=== PATIENT | female | born 1960 | race Caucasian/White ===

== ENCOUNTER 2016-09-27 20:11 | Observation (INO) | payer BC, OTHER ==
[2016-09-27] MEDS ORDERED: SODIUM CHLORIDE 0.9% 1,000 ML IV STA (20:50)
--- NOTE | 2016-09-27 20:59 | ED ---
General Adult HPI - General Source: patient, RN notes reviewed Mode of arrival: ambulatory Limitations: no limitations <Tito Sanchez - Last Filed: 09/27/16 21:12> <Jose Brewer - Last Filed: 09/28/16 00:09> - General Chief complaint: Headache Stated complaint: migraine Time Seen by Provider: 09/27/16 20:44 - History of Present Illness Initial comments: Patient is a 55-year-old female who presents emergency room today with chief complaint of a headache. She states she's had "migraines" over the last week and a half. She states she typically does not have headaches like this. States is different. She describes it as a pressure. She states feels like " my heads going to explode". She states that she has been trying ibuprofen at home with some relief. She states she was unaware that her blood pressure was still elevated. It was 236/105 at triage. She states she does not have a history of hypertension. She states she does not take any other medications other than ibuprofen occasionally at home. She does admit that she felt some fluttering in her chest on and off over the last few days. She states that she' s felt nauseous and had vomiting today. Patient denies any other complaints. Patient denies any recent fever, chills, shortness of breath, chest pain, back pain, abdominal pain, numbness or tingling, dysuria or hematuria, constipation or diarrhea, visual changes, or any other complaints. (Tito Sanchez) - Related Data Home Medications Medication Instructions Recorded Confirmed Cyanocobalamin [Vitamin B-12] 500 mcg PO DAILY 09/27/16 09/27/16 Guaifen/Phenyleph/Acetaminophn 2 tab PO ONCE PRN 09/27/16 09/27/16 [Tylenol Sinus Severe Caplet] Ibuprofen [Motrin] 600 - 800 mg PO DAILY PRN 09/27/16 09/27/16 Allergies Allergy/AdvReac Type Severity Reaction Status Date / Time No Known Allergies Allergy Verified 09/27/16 20:35 Review of Systems ROS Other: All systems not noted in ROS Statement are negative. <Tito Sanchez - Last Filed: 09/27/16 21:12> ROS Other: All systems not noted in ROS Statement are negative. <Jose Brewer - Last Filed: 09/28/16 00:09> ROS Statement: Those systems with pertinent positive or pertinent negative responses have been documented in the HPI. Past Medical History Past Medical History: No Reported History History of Any Multi-Drug Resistant Organisms: None Reported Past Surgical History: Cholecystectomy Additional Past Surgical History / Comment(s): One ovary removed (not sure which ); Bladder suspension Past Psychological History: No Psychological Hx Reported Smoking Status: Current every day smoker Past Alcohol Use History: None Reported Past Drug Use History: None Reported <Tito Sanchez - Last Filed: 09/27/16 21:12> General Exam Limitations: no limitations <Tito Sanchez - Last Filed: 09/27/16 21:12> <Jose Brewer - Last Filed: 09/28/16 00:09> - General Exam Comments Initial Comments: General: The patient is awake and alert, in no distress, and does not appear acutely ill. Eye: Pupils are equal, round and reactive to light, extra-ocular movements are intact. No nystagmus. There is normal conjunctiva bilaterally. No signs of icterus. Ears, nose, mouth and throat: There are moist mucous membranes and no oral lesions. Neck: The neck is supple, there is no tenderness or JVD. Cardiovascular: There is a regular rate and rhythm. No murmur, rub or gallop is appreciated. Respiratory: Lungs are clear to auscultation, respirations are non-labored, breath sounds are equal. No wheezes, stridor, rales, or rhonchi. Gastrointestinal: Soft, non-distended, non-tender abdomen without masses or organomegaly noted. There is no rebound or guarding present. No CVA tenderness. Bowel sounds are unremarkable. Musculoskeletal: Normal ROM, no tenderness. Strength 5/5. Sensation intact. Pulses equal bilaterally 2+. Neurological: A&O x 3. CN II-XII intact, There are no obvious motor or sensory deficits. Coordination appears grossly intact. Speech is normal. Skin: Skin is warm and dry and no rashes or lesions are noted. Psychiatric: Cooperative, appropriate mood & affect, normal judgment. (Tito Sanchez) EKG Findings - EKG Comments: EKG Findings:: EKG performed at 2046: Shows normal sinus rhythm with right bundle branch block. Ventricular rate 79 bpm. OH interval 142. QRS 144. QT/ QTc 404/504. No acute ST changes. No old EKG to compare to. <Thor Sanchezony - Last Filed: 09/27/16 21:12> Medical Decision Making <SanchezTito - Last Filed: 09/27/16 21:12> - Lab Data Result diagrams: 09/27/16 21:03 09/27/16 21:03 <Jose Brewer Jazmin - Last Filed: 09/28/16 00:09> - Medical Decision Making 55-year-old female presenting with global headache. Headache was gradual in onset. Patient has no past history of headache. Blood pressure is elevated 190s systolic. Head CT is obtained which is negative for acute hemorrhage or mass effect. Patient requires 3 doses of IV antihypertensives in the emergency department. Despite this her blood pressure remains high. Laboratory studies are reviewed and are unremarkable. Patient will be admitted to internal medicine for hypertensive urgency is the medic treatment of her headache. She started on Norvasc in the emergency department and will be given hydralazine as needed for blood pressure greater than 180 systolic. Diagnosis: Hypertensive urgency, headache (LinusrosyJose rocha Jazmin) - Lab Data Lab Results 09/27/16 09/27/16 09/27/16 Range/Units 21:03 21:03 21:03 WBC 9.3 (3.8-10.6) k/uL RBC 5.54 H (3.80-5.40) m/uL Hgb 14.7 (11.4-16.0) gm/dL Hct 42.4 (34.0-46.0) % MCV 76.6 L (80.0-100.0) fL MCH 26.6 (25.0-35.0) pg MCHC 34.8 (31.0-37.0) g/dL RDW 16.7 H (11.5-15.5) % Plt Count 332 (150-450) k/uL Neutrophils % 76 % Lymphocytes % 19 % Monocytes % 3 % Eosinophils % 1 % Basophils % 0 % Neutrophils # 7.1 (1.3-7.7) k/uL Lymphocytes # 1.8 (1.0-4.8) k/uL Monocytes # 0.3 (0-1.0) k/uL Eosinophils # 0.1 (0-0.7) k/uL Basophils # 0.0 (0-0.2) k/uL Anisocytosis Slight Microcytosis Slight PT 10.7 (9.0-12.0) sec INR 1.1 (<1.1) APTT 28.7 (22.0-30.0) sec Sodium 130 L (137-145) mmol/L Potassium 4.2 (3.5-5.1) mmol/L Chloride 96 L (98-107) mmol/L Carbon Dioxide 22 (22-30) mmol/L Anion Gap 12 mmol/L BUN 9 (7-17) mg/dL Creatinine 0.50 L (0.52-1.04) mg/dL Est GFR (MDRD) Af Amer >60 (>60 ml/min/1.73 sqM) Est GFR (MDRD) Non-Af >60 (>60 ml/min/1.73 sqM) Glucose 130 H (74-99) mg/dL Calcium 9.7 (8.4-10.2) mg/dL Magnesium 1.6 (1.6-2.3) mg/dL Total Bilirubin 0.6 (0.2-1.3) mg/dL AST 28 (14-36) U/L ALT 39 (9-52) U/L Alkaline Phosphatase 71 (38-126) U/L Total Creatine Kinase (30-135) U/L CK-MB (CK-2) (0.0-2.4) ng/mL CK-MB (CK-2) Rel Index Troponin I (0.000-0.034) ng/mL Total Protein 7.5 (6.3-8.2) g/dL Albumin 4.7 (3.5-5.0) g/dL 09/27/16 Range/Units 21:03 WBC (3.8-10.6) k/uL RBC (3.80-5.40) m/uL Hgb (11.4-16.0) gm/dL Hct (34.0-46.0) % MCV (80.0-100.0) fL MCH (25.0-35.0) pg MCHC (31.0-37.0) g/dL RDW (11.5-15.5) % Plt Count (150-450) k/uL Neutrophils % % Lymphocytes % % Monocytes % % Eosinophils % % Basophils % % Neutrophils # (1.3-7.7) k/uL Lymphocytes # (1.0-4.8) k/uL Monocytes # (0-1.0) k/uL Eosinophils # (0-0.7) k/uL Basophils # (0-0.2) k/uL Anisocytosis Microcytosis PT (9.0-12.0) sec INR (<1.1) APTT (22.0-30.0) sec Sodium (137-145) mmol/L Potassium (3.5-5.1) mmol/L Chloride (98-107) mmol/L Carbon Dioxide (22-30) mmol/L Anion Gap mmol/L BUN (7-17) mg/dL Creatinine (0.52-1.04) mg/dL Est GFR (MDRD) Af Amer (>60 ml/min/1.73 sqM) Est GFR (MDRD) Non-Af (>60 ml/min/1.73 sqM) Glucose (74-99) mg/dL Calcium (8.4-10.2) mg/dL Magnesium (1.6-2.3) mg/dL Total Bilirubin (0.2-1.3) mg/dL AST (14-36) U/L ALT (9-52) U/L Alkaline Phosphatase (38-126) U/L Total Creatine Kinase 237 H (30-135) U/L CK-MB (CK-2) 3.8 H* (0.0-2.4) ng/mL CK-MB (CK-2) Rel Index 1.6 Troponin I <0.012 (0.000-0.034) ng/mL Total Protein (6.3-8.2) g/dL Albumin (3.5-5.0) g/dL Disposition <Tito Sanchez - Last Filed: 09/27/16 21:12> Decision to Admit Reason: Admit from EC Decision Date: 09/28/16 Decision Time: 00:09 <Jose Brewer - Last Filed: 09/28/16 00:09> Clinical Impression: Hypertension, Hypertensive urgency, Headache Disposition: ADMITTED IP TO THIS [facility] Condition: Stable Referrals: Tomas Finn III, MD [Primary Care Provider] - 1-2 days
[2016-09-27] MEDS ORDERED: ONDANSETRON 4 MG/2 ML VIAL IVP STA (21:06)
[2016-09-27] MEDS ORDERED: hydrALAZINE HCL 20 MG/ML 1 ML VIAL IVP STA ×2 (21:06→21:51)
[2016-09-27 21:19] LABS: Anisocytosis Slight; Basophils % (A) 0 %; CH 25.4; CHCM 33.2; Eosinophils # (A) 0.1 k/uL (0-0.7); Eosinophils % (A) 1 %; HCT 42.4 % (34.0-46.0); HDW 2.62; HGB 14.7 gm/dL (11.4-16.0); Luc # (Auto) 0.07; Luc % (Auto) 1; Lymphocytes # (A) 1.8 k/uL (1.0-4.8); Lymphocytes % (A) 19 %; MCH 26.6 pg (25.0-35.0); MCHC 34.8 g/dL (31.0-37.0); MCV 76.6 fL (80.0-100.0); Mean Platelet Volume 6.7; Microcytosis Slight; Monocytes # (A) 0.3 k/uL (0-1.0); Monocytes % (A) 3 %; Neutrophils # (A) 7.1 k/uL (1.3-7.7); Neutrophils % (A) 76 %; RBC 5.54 m/uL (3.80-5.40); RDW 16.7 % (11.5-15.5); WBC 9.3 k/uL (3.8-10.6); WBC (Perox) 8.86
[2016-09-27 21:27] LABS: ALT 39 U/L (9-52); AST 28 U/L (14-36); Alkaline Phosphatase 71 U/L (38-126); Anion Gap 12 mmol/L; Blood Urea Nitrogen 9 mg/dL (7-17); Calcium 9.7 mg/dL (8.4-10.2); Carbon Dioxide 22 mmol/L (22-30); Chloride 96 mmol/L (98-107); Glucose 130 mg/dL (74-99); INR 1.1 (<1.1); Magnesium 1.6 mg/dL (1.6-2.3); Non-African American GFR(MDRD) >60 (>60 ml/min/1.73 sqM); Partial Thromboplastin Time 28.7 sec (22.0-30.0); Potassium 4.2 mmol/L (3.5-5.1); Prothrombin Time 10.7 sec (9.0-12.0); Sodium 130 mmol/L (137-145); Total Bilirubin 0.6 mg/dL (0.2-1.3); Total Protein 7.5 g/dL (6.3-8.2)
[2016-09-27 21:36] LABS: Creatine Kinase 237 U/L (30-135)
[2016-09-27 21:49] LABS: Troponin I <0.012 ng/mL (0.000-0.034)
[2016-09-27 21:52] LABS: Creatine Kinase MB 3.8 ng/mL (0.0-2.4)
--- NOTE | 2016-09-27 21:55 | XR ---
EXAMINATION TYPE: XR chest 2V DATE OF EXAM: 09/27/2016 COMPARISON: 07/10/2013 HISTORY: Coughing and vomiting TECHNIQUE: Frontal and lateral views of the chest are obtained. FINDINGS: There is no focal air space opacity, pleural effusion, or pneumothorax seen. The cardiac silhouette size is within normal limits. The osseous structures are intact. IMPRESSION: No acute cardiopulmonary process.
[2016-09-27] MEDS ORDERED: METOCLOPRAMIDE 5 MG/ML 2 ML VIAL IVP STA (22:30)
[2016-09-27] MEDS ORDERED: diphenhydrAMINE 50 MG/ML 1 ML VIAL IVP STA (22:30)
[2016-09-27] MEDS ORDERED: LABETALOL 5 MG/ML VIAL MDV IVP STA (22:31)
--- NOTE | 2016-09-27 23:22 | CT ---
EXAM: CT Head Without Intravenous Contrast CLINICAL HISTORY: Reason: Headache, vomiting. TECHNIQUE: Axial computed tomography images of the head/brain without intravenous contrast. CTDI is 57.40 mGy and DLP is 927.10 mGy-cm. This CT exam was performed using one or more of the following dose reduction techniques: automated exposure control, adjustment of the mA and/or kV according to patient size, and/or use of iterative reconstruction technique. COMPARISON: No relevant prior studies available. FINDINGS: Brain: No identifiable acute or recent territorial infarct, midline shift, mass effect or intracranial hemorrhage. Ventricles: Unremarkable. No hydrocephalus. Bones/joints: Unremarkable. No acute fracture. Soft tissues: Unremarkable. Sinuses: Right sphenoid sinusitis with air-fluid level present. Remaining visualized paranasal sinuses are clear. Mastoid air cells: Unremarkable. No mastoid effusion. IMPRESSION: 1. No acute intracranial abnormality including no evidence of hydrocephalus or intracranial hemorrhage. 2. Acute right sphenoid sinusitis with air-fluid level present.
[2016-09-27] MEDS ORDERED: DEXTROSE 5%-0.45% NACL 1,000 ML IV SCH (23:45)
[2016-09-27] MEDS ORDERED: IBUPROFEN 400 MG TAB PO PRN (23:59)
[2016-09-27] MEDS ORDERED: NALOXONE 0.4 MG/ML 1 ML VIAL IV PRN (23:59)
[2016-09-27] MEDS ORDERED: ACETAMINOPHEN TAB 325 MG TAB PO PRN (23:59)
[2016-09-28] MEDS ORDERED: amLODIPine 5 MG TAB PO STA (00:03)
[2016-09-28] MEDS ORDERED: hydrALAZINE HCL 20 MG/ML 1 ML VIAL IVP PRN (00:04)
[2016-09-28] MEDS: MORPHINE SULFATE 4 MG/ML SYRINGE IV PRN ×2 (01:12→06:34)
[2016-09-28 01:22] VITALS: BMI 28.4
[2016-09-28] MEDS ORDERED: METOCLOPRAMIDE 5 MG/ML 2 ML VIAL IVP SCH (08:00)
[2016-09-28] MEDS ORDERED: BUTALB/APAP/CAFF 50-325-40MG TAB PO PRN (14:04)
[2016-09-28] MEDS ORDERED: PROCHLORPERAZINE 10 MG TAB PO PRN (14:05)
[2016-09-28 14:23] LABS: % Iron Saturation 23.3 % (20-50)
[2016-09-28] MEDS: SODIUM CHLORIDE 0.9% 1,000 ML IV SCH (14:55)
[2016-09-28] MEDS: amLODIPine 10 MG TAB PO SCH (14:55)
[2016-09-28] MEDS: FAMOTIDINE 20 MG/2 ML VIAL IV SCH ×2 (14:55→20:07)
[2016-09-28] MEDS: KETOROLAC 30 MG/ML 1 ML VIAL IVP PRN ×2 (15:02→20:06)
[2016-09-28 19:13] VITALS: RESP 18
--- NOTE | 2016-09-28 19:19 | HP ---
DATE OF ADMISSION: 09/28/16 CHIEF COMPLAINT: Headache. HISTORY OF PRESENT ILLNESS: Ms. Menjivar is a 55 year old female with known history of migraine headache, no recent exacerbation, not on any medications, came to the hospital with complaints of headache, the patient says that pressure like sensation mainly in the forehead. The patient states that she typically does not have headaches like this. The patient stated like her head is going to explode. The patient has tried to take ibuprofen at home without relief. The patient came to the hospital for further evaluation. The patient does not have any history of hypertension but the patient's blood pressure was elevated with ( ) about 236 and diastolic blood pressure around 105 in the ER. The patient had a CT of the head showed acute right sinusitis with air fluid level and no acute intracranial abnormality. No evidence of hydrocephalus or intracranial hemorrhage noted. Chest x-ray showed normal sinus rhythm. The patient has a cough with whitish sputum production. Denied any recent issues. No sick contacts at home. Denied any abdominal pain. The patient does have nausea and episode of vomiting today. Denied any diarrhea. No visual or hearing changes. Otherwise, the patient is still having headache now. REVIEW OF SYSTEMS: CONSTITUTIONAL: No fever, no chills. The patient does have headache and lightheadedness. RESPIRATORY: The patient does have cough without sputum production. CARDIOVASCULAR: No chest pain. No shortness of breath. No leg swelling. No palpitations. ABDOMINAL: No abdominal pain. No diarrhea. The patient does have nausea and vomiting. GENITOURINARY: No dysuria or hematuria. ENDOCRINE: No heat or cold intolerance. Negative. MUSCULOSKELETAL: No joint swelling or deformities. NEUROLOGICAL: The patient does have headache. No dizziness or lightheadedness. No numbness or tingling. The patient does have sinus congestion. SKIN: Negative. All other 14 point review of systems negative except as above. PAST MEDICAL HISTORY: Includes history of migraine headaches, not on any medication now. PAST SURGICAL HISTORY: Cholecystectomy, ovaries removed. Bladder suspension surgery. No psychosocial history. SOCIAL HISTORY: The patient is currently an everyday smoker. Denied any alcohol use. Denied any drugs or IVDU. ALLERGIES: No known drug allergies. FAMILY HISTORY: Denied any history of hypertension, diabetes mellitus or premature heart disease in the family. Home medications include: 1. Vitamin B12. 2. Tylenol sinus. 3. Motrin. PHYSICAL EXAMINATION: A 55 year old female lying in the bed, awake, alert and oriented times three. Appears to be in mild distress due to headache and pain. Vitals: Blood pressure 236/110 on admission, currently blood pressure is 142/ 70. Pulse rate 85, respiratory rate 16, temperature afebrile. Pulse ox 95% on room air. HEENT: Atraumatic, normocephalic. Neck is supple. No JVD. The patient does have sinusitis. CVS: S1, S2 heard. No murmurs. No gallops. No rubs. Lungs bilateral air entry is present. No wheezing. No crackles. Nonlabored breathing. Abdomen is soft, nontender. Bowel sounds present. [employer]: Awake, alert and oriented times three. No focal deficits. Extremities no edema. Pulses palpable bilaterally. No clubbing or cyanosis. Psychiatric: Cooperative. Laboratory data: WBC 9.3, hemoglobin 14.7, MCV 76.6, platelets 332. RDW 16.7, INR 1.1. Sodium 130, potassium 4.2, chloride 196. Bicarb 22. BUN 9, creatinine 0.5. Blood sugar 130. Ferritin 8. CPK 237, CK 3.8, troponin less than 0.012. albumin 4.7. CT head no acute intracranial process. Showed acute right sphenoid sinusitis. Chest x-ray no acute cardiopulmonary process. IMPRESSION: 1. Intractable headache likely due to sinusitis and history of migraine headache. 2. Acute right sphenoid sinusitis. 3. Hypertensive urgency. On admission. 4. Hypovolemic hyponatremia. 5. Nausea and vomiting, possible gastritis related to headache as well. 6. History of migraine headaches. 7. Microcytic iron deficiency with ferritin level of 8. 8. Mildly elevated CPK level at 237. DISCUSSION AND PLAN: The patient will be continued on pain management with Toradol and Compazine and Fioricet prn for headache and the patient will be started on IV fluids and the patient will be started on Norvasc 10 mg daily and continued with hydralazine prn IV. The patient also will be started on Augmentin for sinus headache and follow up closely. Continue with symptomatic management. Further recommendations based on clinical course. MTDD
[2016-09-28] MEDS: HEPARIN SODIUM,PORCINE 5,000 UNIT/ML 1 ML VIAL SQ SCH (20:07)
[2016-09-28] MEDS: AMOXIC-POT CLAV 875-125MG 1 EACH TAB PO SCH (20:07)
[2016-09-29] MEDS: KETOROLAC 30 MG/ML 1 ML VIAL IVP PRN (02:38)
[2016-09-29] MEDS: SODIUM CHLORIDE 0.9% 1,000 ML IV SCH (06:30)
[2016-09-29 06:50] LABS: Anisocytosis Slight; Basophils % (A) 0 %; CH 25.4; CHCM 32.4; Eosinophils # (A) 0.1 k/uL (0-0.7); Eosinophils % (A) 1 %; HCT 41.6 % (34.0-46.0); HDW 2.51; HGB 13.7 gm/dL (11.4-16.0); Luc # (Auto) 0.09; Luc % (Auto) 2; Lymphocytes # (A) 1.4 k/uL (1.0-4.8); Lymphocytes % (A) 27 %; MCV 78.8 fL (80.0-100.0); Mean Platelet Volume 6.5; Microcytosis Slight; Monocytes # (A) 0.3 k/uL (0-1.0); Monocytes % (A) 7 %; Neutrophils # (A) 3.3 k/uL (1.3-7.7); Neutrophils % (A) 63 %; RBC 5.28 m/uL (3.80-5.40); RDW 17.5 % (11.5-15.5); WBC 5.2 k/uL (3.8-10.6); WBC (Perox) 5.25
[2016-09-29 07:14] LABS: Anion Gap 9 mmol/L; Blood Urea Nitrogen 11 mg/dL (7-17); Calcium 9.1 mg/dL (8.4-10.2); Carbon Dioxide 24 mmol/L (22-30); Chloride 103 mmol/L (98-107); Glucose 92 mg/dL (74-99); Non-African American GFR(MDRD) >60 (>60 ml/min/1.73 sqM); Potassium 3.8 mmol/L (3.5-5.1); Sodium 136 mmol/L (137-145)
[2016-09-29] MEDS: amLODIPine 10 MG TAB PO SCH (10:21)
[2016-09-29] MEDS: AMOXIC-POT CLAV 875-125MG 1 EACH TAB PO SCH (10:21)
[2016-09-29] MEDS: HEPARIN SODIUM,PORCINE 5,000 UNIT/ML 1 ML VIAL SQ SCH (10:21)
[2016-09-29 12:30] VITALS: BP 189/106; PULSE 78; TEMP 97.9
[2016-09-29] MEDS ORDERED: HYDROCHLOROTHIAZIDE 25 MG TAB PO SCH (13:45)
[2016-09-29] MEDS: FAMOTIDINE 20 MG/2 ML VIAL IV SCH (14:22)
== END 2016-09-29 15:15 | disposition home or self-care (01) ==
LOC: EC 20:11 → 3OBS 23:59
PROVIDERS: ADMIT Internal Medicine; ATTEND Internal Medicine
DX: R51 Headache (principal); J32.3 Chronic sphenoidal sinusitis; I16.0 Hypertensive urgency; E87.1 Hypo-osmolality and hyponatremia; R11.2 Nausea with vomiting, unspecified; E61.1 Iron deficiency; R74.8 Abnormal levels of other serum enzymes; F17.200 Nicotine dependence, unspecified, uncomplicated; Z90.49 Acquired absence of other specified parts of digestive tract
CPT/HCPCS: 96375 ×6; 96376 ×4; 96361 ×2; 96374 ×2; 99285 ×2; 96365; 96366; 36415; 94760; 93005; 80053; 80048; 82728; 82550; 82553; 83540; 83550; 83735; 84484; 85025 ×2; 85610; 85730; 84466; 71020; 70450; G0378 ×3; S0183; J2270; J0360 ×2; J1200; J2765 ×2; J2405; J1885 ×2

== ENCOUNTER → 2018-11-04 | Outpatient (CLI) | payer BC ==
--- NOTE | 2018-11-05 10:04 | MM ---
Reason for exam: screening (asymptomatic). Last mammogram was performed 1 year and 10 months ago. History: Patient is postmenopausal. Family history of breast cancer in mother at age 77, breast cancer in maternal aunt at age 63, and breast cancer in cousin. Benign excisional biopsy of the left breast. Took hormonal contraceptives for 6 years. Physical Findings: A clinical breast exam by your physician is recommended on an annual basis and results should be correlated with mammographic findings. MG Screening Mammo w CAD Bilateral CC and MLO view(s) were taken. Prior study comparison: January 18, 2017, bilateral MG screening mammo w CAD. July 10, 2013, bilateral digital screening mammo w/CAD. There are scattered fibroglandular densities. Stable benign calcifications. There is no discrete abnormality. No significant changes when compared with prior studies. ASSESSMENT: Benign, BI-RAD 2 RECOMMENDATION: Routine screening mammogram of both breasts in 1 year.
== END | disposition home or self-care (01) ==
LOC: RADMAMWWP 10:50
PROVIDERS: ATTEND Family Medicine
DX: Z12.31 Encounter for screening mammogram for malignant neoplasm of breast (principal)
CPT/HCPCS: 77067

== ENCOUNTER → 2019-05-28 | Outpatient (CLI) | payer BC ==
--- NOTE | 2019-05-28 15:47 | CT ---
EXAMINATION TYPE: CT abdomen pelvis w con DATE OF EXAM: 05/28/2019 HISTORY: Epigastric pain and swelling. Pt says she can feel a lump above belly button CT DLP: 1249mGycm Automated Exposure Control for Dose Reduction was Utilized. CONTRAST: CT scan of the abdomen and pelvis is performed with IV Contrast, patient injected with 100 mL of Isov ue 300. COMPARISON: None. FINDINGS: LUNG BASES: No significant abnormality is appreciated. LIVER/GB: Cholecystectomy clips are seen. PANCREAS: No significant abnormality is seen. SPLEEN: No significant abnormality is seen. ADRENALS: No significant abnormality is seen. KIDNEYS: No significant abnormality is seen. BOWEL: Oral contrast reaches level of the proximal sigmoid colon. No suspicious small or large bowel dilatation. UTERUS/ADNEXA: Heterogeneous anteverted enlarged uterus with large fibroid towards the fundus suspect ed sagittal image 41 approaching 9 to 10 cm.. LYMPH NODES: No greater than 1cm abdominal or pelvic lymph nodes are appreciated. OSSEOUS STRUCTURES: Moderate to severe multilevel disc space narrowing with endplate sclerosis L2-L3 through the L4-L5 levels. OTHER: There is tiny fat-containing umbilical hernia axial image 39. Superior to this likely correspo nding to patient's palpable abnormality there is narrowing acromion along control midline scar contai victorino fat and tiny mesenteric vessels with additional lobulated component inferior to this extending t o the right of midline seen coronal image 16. Moderate calcified plaque of the aorta extends into branch vessels. IMPRESSION: 1. There is ventral wall hernia in the midline anterior abdominal wall roughly 6 cm above the umbilic us may be along a prior surgical excision containing fat and tiny mesenteric vessels with some lobula tion.
== END | disposition home or self-care (01) ==
LOC: RADCTMAIN 12:49
PROVIDERS: ATTEND Family Medicine
DX: K43.2 Incisional hernia without obstruction or gangrene (principal)
CPT/HCPCS: 74177; Q9967

== ENCOUNTER → 2019-09-01 | Outpatient (CLI) | payer BC ==
[2019-09-01 10:51] LABS: Basophils % (A) 0 %; Eosinophils # (A) 0.2 k/uL (0-0.7); Eosinophils % (A) 3 %; HCT 44.5 % (34.0-46.0); HGB 14.9 gm/dL (11.4-16.0); Lymphocytes # (A) 1.8 k/uL (1.0-4.8); Lymphocytes % (A) 25 %; MCH 30.7 pg (25.0-35.0); MCHC 33.6 g/dL (31.0-37.0); MCV 91.5 fL (80.0-100.0); Mean Platelet Volume 6.6; Monocytes # (A) 0.4 k/uL (0-1.0); Monocytes % (A) 6 %; Neutrophils # (A) 4.9 k/uL (1.3-7.7); Neutrophils % (A) 66 %; Platelet Count 298 k/uL (150-450); RBC 4.86 m/uL (3.80-5.40); RDW 13.2 % (11.5-15.5); WBC 7.4 k/uL (3.8-10.6)
== END | disposition home or self-care (01) ==
LOC: LABPAT 09:26
PROVIDERS: ATTEND Surgery
DX: Z01.818 Encounter for other preprocedural examination (principal); K43.6 Other and unspecified ventral hernia with obstruction, without gangrene
CPT/HCPCS: 36415; 85025

== ENCOUNTER → 2019-09-07 | Day surgery (SDC) | payer BC ==
[2019-09-02 10:20] VITALS: BMI 28.3
[~2019-09-07] MED LIST: ACETAMINOPHEN TAB 500 MG TAB PO ONE; BUPIVACAINE (PF) 0.25% 30 ML VIAL SQ ONE; DEXAMETHASONE SOD PHOSPHATE 10 MG/ML 1 ML VIAL IV ONE; GLYCOPYRROLATE 0.2 MG/ML 2 ML VIAL ONE; HEPARIN SODIUM,PORCINE 5,000 UNIT/ML 1 ML VIAL SQ ONE; HYDROmorphone 0.5 MG/0.5 ML SYRINGE IVP PRN; KETOROLAC 30 MG/ML 1 ML VIAL ONE; LIDOCAINE 1% (10MG/ML) FOR IV START INTRADERMA ONE; LIDOCAINE 1% INJ 10MG/ML (20 ML MDV) ONE; MIDAZOLAM 2 MG/2 ML VIAL IV ONE; MIDAZOLAM 2 MG/2 ML VIAL ONE; NALOXONE 0.4 MG/ML 1 ML VIAL IV PRN; NEOSTIGMINE 1 MG/ML 10 ML VIAL ONE; ONDANSETRON 4 MG/2 ML VIAL IVP ONE; PROPOFOL 10 MG/ML 20 ML VIAL IV ONE; ROCURONIUM BROMIDE 10 MG/ML 5 ML VIAL IV ONE; ROPIVACAINE 5 MG/ML 30 ML VIAL ONE; SUCCINYLCHOLINE CHLORIDE 100 MG/5 ML SYR IV ONE; ePHEDrine SULFATE/0.9% NACL/PF 50 MG/5 ML SYRINGE IV ONE; fentaNYL (PF) 50 MCG/ML 2 ML AMP ONE; traMADol 50 MG TAB PO PRN
[2019-09-07] MEDS: LACTATED RINGERS 1,000 ML IV SCH ×2 (10:15→13:04)
--- NOTE | 2019-09-07 10:57 | P.ANPRN ---
Procedure Note - Anesthesia - Nerve Block Performed Bilateral Transversus Abdominis Single Date of Procedure: 09/07/19 Procedure Start Time: 10:31 Procedure Stop Time: 10:41 Location of Patient: PreOp Indication: Acute Post-Operative Pain, Requested by Surgeon Sedation Type: Sedate with meaningful contact maintained Preparation: Sterile Prep Position: Supine Catheter: None Needle Types: On-Q Needle Gauge: 21 Ultrasound used to visualize needle placement: Yes Ultrasound used to observe medication spread: Yes Blood Aspirated: No Pain Paresthesia on Injection Noted: No Resistance on Injection: Normal Image Stored and Saved: Yes Events: Uneventful and Well Tolerated (total volume of 30 mls of Ropivacaine 0.5%)
--- NOTE | 2019-09-07 11:14 | P.GSHP ---
History of Present Illness H&P Date: 09/07/19 Chief Complaint: Incarcerated ventral hernia 58-year-old female seen in May. Patient has complaints of a bulge midway between the umbilicus and xiphoid. Increasing in size over the last several years. CAT scan showed an incarcerated hernia there. Also has a small a sym ptomatically umbilical hernia. She does not have any troubles at the umbilicus. She thinks it has gotten larger at the ventral hernia site. No previous trauma or surgery in that location. No nausea or vomiting. Past Medical History Past Medical History: Asthma, Hypertension, Osteoarthritis (OA) Additional Past Medical History / Comment(s): urinary leakage History of Any Multi-Drug Resistant Organisms: None Reported Past Surgical History: Bladder Surgery, Cholecystectomy Additional Past Surgical History / Comment(s): rt oohorectomy, Bladder suspension Past Anesthesia/Blood Transfusion Reactions: Family History of Problems w/ Anesthesia Additional Past Anesthesia/Blood Transfusion Reaction / Comment(s): most family have problems with itching from anesthesia Smoking Status: Current every day smoker - Past Family History Mother Family Medical History: Cancer Son(s) Family Medical History: Cancer Medications and Allergies Home Medications Medication Instructions Recorded Confirmed Type Cyanocobalamin [Vitamin B-12] 1,000 mcg PO DAILY 09/27/16 09/07/19 History amLODIPine [Norvasc] 10 mg PO DAILY #30 tab 09/29/16 09/07/19 Rx Albuterol Inhaler [Ventolin Hfa 2 puff INHALATION Q4-6H PRN 09/02/19 09/07/19 History Inhaler] Atorvastatin [Lipitor] 10 mg PO HS 09/02/19 09/07/19 History Allergies Allergy/AdvReac Type Severity Reaction Status Date / Time No Known Allergies Allergy Verified 09/07/19 09:46 Surgical - Exam Vital Signs Temp Pulse Resp BP Pulse Ox 97 F L 77 18 125/78 96 09/07/19 09:48 09/07/19 09:48 09/07/19 09:48 09/07/19 09:48 09/07/19 09:48 Physical exam: General: Well-developed, well-nourished HEENT: Normocephalic, sclerae nonicteric Abdomen: Nontender, nondistended, incarcerated ventral hernia, umbilical hernia nonpalpable Extremities: No edema Neuro: Alert and oriented Assessment and Plan (1) Incarcerated ventral hernia Narrative/Plan: Will proceed with repair with mesh at this time. Risks of bleeding, infection, recurrence, bladder and bowel injury, numbness, nerve injury were discussed with the patient. The patient understands and wishes to proceed. Current Visit: Yes Status: Acute Code(s): K43.6 - OTHER AND UNSP VENTRAL HERNIA WITH OBSTRUCTION, W/O GANGRENE SNOMED Code(s): 657295648
[2019-09-07 12:38] VITALS: RESP 16; TEMP 98
--- NOTE | 2019-09-07 12:45 | P.OP ---
Date of Procedure: 09/07/19 Procedure(s) Performed: PREOPERATIVE DIAGNOSIS: Incarcerated ventral hernia POSTOPERATIVE DIAGNOSIS: Same PROCEDURE: Incarcerated the ventral hernia repair with mesh SURGEON: Karan EBL: Minimal ANESTHESIA: Gen. COMPLICATIONS: None OPERATIVE PROCEDURE: Patient placed on the operating table in the supine posi tion. Abdomen was prepped and draped in usual sterile fashion. A vertical incision was then made superior to the umbilicus by approximately 3 cm. Dissection through the subcutaneous tissues took place using electrocautery. The patient had a a single defect measuring 1.5 cm in size. The size of the hernia sac was fairly large measuring approximately 5 x 3 cm. A portion of the hernia sac and pre-peroneal fat was excised. Preperitoneal space was then carefully dissected using both blunt dissection and cautery. We had adequate space for the 4.3 cm mesh to be placed beneath the fascia. The 4.3 cm ventral ex mesh was placed in the preperitoneal space and sutured to the fascia using trans-fascial 0 Ethibond sutures. Following that the midline fascia was reapproximated using interrupted 0 Ethibond mattress sutures. The subcutaneous tissues were closed using 3-0 Vicryl sutures. The skin was closed using a running 4-0 Monocryl suture. Skin glue and sterile dressings were applied. DISPOSITION: Stable to recovery room
[2019-09-07 13:32] VITALS: BP 110/71; PULSE 72
== END ==
LOC: OR 09:09
PROVIDERS: ATTEND Surgery
DX: K43.6 Other and unspecified ventral hernia with obstruction, without gangrene (principal); I10 Essential (primary) hypertension; J45.909 Unspecified asthma, uncomplicated; M19.90 Unspecified osteoarthritis, unspecified site; D50.9 Iron deficiency anemia, unspecified; F17.210 Nicotine dependence, cigarettes, uncomplicated; Z79.899 Other long term (current) drug therapy; Z90.49 Acquired absence of other specified parts of digestive tract; Z90.721 Acquired absence of ovaries, unilateral; Z98.890 Other specified postprocedural states; Z80.9 Family history of malignant neoplasm, unspecified; Z82.49 Family history of ischemic heart disease and other diseases of the circulatory system; Z83.3 Family history of diabetes mellitus; Z81.1 Family history of alcohol abuse and dependence
CPT/HCPCS: 64488; 88302; 49561; 49568; C1781; J2250; J1644; J1100; J2710; J0690; J2405; J2001; J3010; J1885; J2795; J0330; J2704

== ENCOUNTER → 2019-12-25 | Outpatient (CLI) | payer BC ==
--- NOTE | 2019-12-29 13:36 | MM ---
Reason for exam: screening (asymptomatic). Last mammogram was performed 1 year and 2 months ago. History: Patient is postmenopausal. Family history of breast cancer in mother at age 77, breast cancer in maternal aunt at age 63, and breast cancer in cousin. Benign stereotactic core biopsy of the left breast, 2009. Took hormonal contraceptives for 6 years. Physical Findings: A clinical breast exam by your physician is recommended on an annual basis and results should be correlated with mammographic findings. MG Screening Mammo w CAD Bilateral CC and MLO view(s) were taken. Prior study comparison: November 04, 2018, bilateral MG screening mammo w CAD. January 18, 2017, bilateral MG screening mammo w CAD. There are scattered fibroglandular densities. Previous mammotome biopsy in the left breast. There is chronic nodularity in the left breast posteriorly. No significant changes when compared with prior studies. ASSESSMENT: Negative, BI-RAD 1 RECOMMENDATION: Routine screening mammogram of both breasts in 1 year.
== END | disposition home or self-care (01) ==
LOC: RADMAMWWP 12:30
PROVIDERS: ATTEND Family Medicine
DX: Z12.39 Encounter for other screening for malignant neoplasm of breast (principal)
CPT/HCPCS: 77067

== ENCOUNTER → 2021-02-14 | Outpatient (CLI) | payer BC ==
--- NOTE | 2021-02-16 11:50 | MM ---
Reason for exam: screening (asymptomatic). Last mammogram was performed 1 year and 2 months ago. History: Patient is postmenopausal. Family history of breast cancer in mother at age 77, breast cancer in maternal aunt at age 63, and breast cancer in cousin. Benign stereotactic core biopsy of the left breast, 2009. Took hormonal contraceptives for 6 years. Physical Findings: A clinical breast exam by your physician is recommended on an annual basis and results should be correlated with mammographic findings. MG Screening Mammo w CAD Bilateral CC and MLO view(s) were taken. Prior study comparison: December 25, 2019, bilateral MG screening mammo w CAD. November 04, 2018, bilateral MG screening mammo w CAD. There are scattered fibroglandular densities. Previous mammotome biopsy in the left breast. There is chronic nodularity in the left breast. No significant changes when compared with prior studies. ASSESSMENT: Benign, BI-RAD 2 RECOMMENDATION: Routine screening mammogram of both breasts in 1 year.
== END | disposition home or self-care (01) ==
LOC: RADMAMWWP 14:01
PROVIDERS: ATTEND Family Medicine
DX: Z12.31 Encounter for screening mammogram for malignant neoplasm of breast (principal); Z80.3 Family history of malignant neoplasm of breast; Z78.0 Asymptomatic menopausal state
CPT/HCPCS: 77067

== ENCOUNTER 2021-06-12 10:06 | Emergency (ER) | payer BC ==
[2021-06-12 10:16] VITALS: TEMP 98.2
--- NOTE | 2021-06-12 10:45 | ED ---
SOB HPI - General Chief Complaint: Abdominal Pain Stated Complaint: SOB/Diarrhea Time Seen by Provider: 06/12/21 10:18 Source: patient, RN notes reviewed Mode of arrival: ambulatory Limitations: no limitations - History of Present Illness Initial Comments: This is a 60-year-old female who presents to the emergency department for diarrhea and shortness of breath. For the last week, she has had shortness of breath, chest heaviness, and diarrhea. Her symptoms have caused her to feel overall very fatigued. She did not have diarrhea after starting any antibiotics, however she did start a Z-Hans about 5 days ago after the diarrhea had already started. She is a daily smoker, currently being treated for high blood pressure and osteoarthritis. She does have high cholesterol, however she is treating this with fish oil as opposed to a statin, because the statin caused pain in the bilateral lower extremities. Because of the smoking, she does have a chronic cough, however she states that this has not worsened. Denies any abdominal pain. Denies any history of similar symptoms. Denies any sick contacts, fevers, or chills. She has not taken any OTC medication to treat her symptoms. MD Complaint: shortness of breath Onset/Timin -: days(s) - Related Data Home Medications Medication Instructions Recorded Confirmed Cyanocobalamin [Vitamin B-12] 1,000 mcg PO DAILY 09/27/16 06/12/21 Albuterol Inhaler [Ventolin Hfa 2 puff INHALATION RT-Q4H PRN 09/02/19 06/12/21 Inhaler] Celecoxib [CeleBREX] 200 mg PO BID 06/12/21 06/12/21 [place]-3 Fatty Acids/Fish Oil [Fish 1 cap PO DAILY 06/12/21 06/12/21 Oil 1,000 mg Softgel] Previous Rx's Medication Instructions Recorded amLODIPine [Norvasc] 10 mg PO DAILY #30 tab 09/29/16 Allergies Allergy/AdvReac Type Severity Reaction Status Date / Time No Known Allergies Allergy Verified 06/12/21 11:14 Review of Systems ROS Statement: Those systems with pertinent positive or pertinent negative responses have been documented in the HPI. ROS Other: All systems not noted in ROS Statement are negative. Constitutional: Denies: fever, chills ENT: Denies: ear pain, throat pain Respiratory: Reports: cough, dyspnea Cardiovascular: Reports: chest pain. Denies: palpitations Endocrine: Reports: fatigue Gastrointestinal: Reports: diarrhea. Denies: abdominal pain, nausea, vomiting Genitourinary: Denies: urgency, dysuria Musculoskeletal: Denies: back pain Skin: Denies: rash Neurological: Denies: headache Past Medical History Past Medical History: COPD History of Any Multi-Drug Resistant Organisms: None Reported Past Surgical History: Cholecystectomy Additional Past Surgical History / Comment(s): One ovary removed (not sure which); Bladder suspension Past Anesthesia/Blood Transfusion Reactions: No Reported Reaction Past Psychological History: No Psychological Hx Reported Smoking Status: Current every day smoker Past Alcohol Use History: None Reported Past Drug Use History: None Reported General Exam Limitations: no limitations General appearance: alert, in no apparent distress Head exam: Present: atraumatic, normocephalic, normal inspection Respiratory exam: Present: wheezes (left upper lobe). Absent: respiratory distress, rales, rhonchi, stridor, decreased breath sounds, prolonged expiratory Cardiovascular Exam: Present: regular rate, normal rhythm, normal heart sounds. Absent: systolic murmur, diastolic murmur, rubs, gallop, clicks GI/Abdominal exam: Present: soft, tenderness, normal bowel sounds, other (mild diffuse fullness suggestive of constipation). Absent: guarding, rebound Neurological exam: Present: alert, oriented X3, CN II-XII intact Psychiatric exam: Present: normal affect, normal mood Skin exam: Present: warm, dry, intact, normal color. Absent: rash Course Vital Signs 06/12/21 06/12/21 10:14 12:48 Temperature 98.2 F Pulse Rate 89 75 Respiratory 20 16 Rate Blood Pressure 146/67 120/79 O2 Sat by Pulse 98 98 Oximetry Medical Decision Making - Medical Decision Making This is a 60-year-old female who presents to the emergency department for diarrhea, shortness of breath, and chest heaviness. EKG does not reveal any acute changes. Lab work revealed an elevated white blood cell count with a left shift, consistent with infection. Lab work was otherwise fairly unremarkable, and did not identify any signs of congestive heart failure or ACS. She tested negative for Covid, influenza, and RSV. Chest x-ray was also negative. Patient was rehydrated with 1L of normal saline. States that she feels fine right now and wanted to ensure that she did not have anything emergent causing her symptoms. Patient advised that this is likely viral and there are not any particular causes we have been able to identify at this time. She is advised to remain well hydrated and continue with symptomatic management. Return precautions reviewed in depth, the patient is instructed to return to the emergency department with any new, worsening, or concerning symptoms. Patient verbalized understanding. This case was discussed in detail with the attending ED physician. Presentation, findings, and treatment plan discussed in detail as well. - Lab Data Result diagrams: 06/12/21 10:48 06/12/21 10:48 Lab Results 06/12/21 06/12/21 06/12/21 Range/Units 10:48 10:48 10:48 WBC 11.7 H (3.8-10.6) k/uL RBC 5.37 (3.80-5.40) m/uL Hgb 16.3 H (11.4-16.0) gm/dL Hct 49.3 H (34.0-46.0) % MCV 91.9 (80.0-100.0) fL MCH 30.4 (25.0-35.0) pg MCHC 33.1 (31.0-37.0) g/dL RDW 14.2 (11.5-15.5) % Plt Count 398 (150-450) k/uL MPV 7.0 Neutrophils % 71 % Lymphocytes % 18 % Monocytes % 7 % Eosinophils % 2 % Basophils % 0 % Neutrophils # 8.3 H (1.3-7.7) k/uL Lymphocytes # 2.1 (1.0-4.8) k/uL Monocytes # 0.8 (0-1.0) k/uL Eosinophils # 0.3 (0-0.7) k/uL Basophils # 0.0 (0-0.2) k/uL PT 18.0 H (9.0-12.0) sec INR 1.8 H (<1.2) APTT 37.8 H (22.0-30.0) sec Sodium 134 L (137-145) mmol/L Potassium 3.8 (3.5-5.1) mmol/L Chloride 100 (98-107) mmol/L Carbon Dioxide 25 (22-30) mmol/L Anion Gap 9 mmol/L BUN 18 H (7-17) mg/dL Creatinine 0.69 (0.52-1.04) mg/dL Est GFR (CKD-EPI)AfAm >90 (>60 ml/min/1.73 sqM) Est GFR (CKD-EPI)NonAf >90 (>60 ml/min/1.73 sqM) Glucose 105 H (74-99) mg/dL Calcium 9.2 (8.4-10.2) mg/dL Magnesium 1.7 (1.6-2.3) mg/dL Total Bilirubin 0.6 (0.2-1.3) mg/dL AST 23 (14-36) U/L ALT 20 (4-34) U/L Alkaline Phosphatase 74 (38-126) U/L CK-MB (CK-2) (0.0-2.4) ng/mL Troponin I (0.000-0.034) ng/mL NT-Pro-B Natriuret Pep pg/mL Total Protein 7.3 (6.3-8.2) g/dL Albumin 4.3 (3.5-5.0) g/dL Amylase 71 (30-110) U/L Lipase 129 (23-300) U/L Urine Color Urine Appearance (Clear) Urine pH (5.0-8.0) Ur Specific [place] (1.001-1.035) Urine Protein (Negative) Urine Glucose (UA) (Negative) Urine Ketones (Negative) Urine Blood (Negative) Urine Nitrite (Negative) Urine Bilirubin (Negative) Urine Urobilinogen (<2.0) mg/dL Ur Leukocyte Esterase (Negative) Urine RBC (0-5) /hpf Urine WBC (0-5) /hpf Ur Squamous Epith Cells (0-4) /hpf Urine Mucus (None) /hpf Influenza Type A (PCR) (Not Detectd) Influenza Type B (PCR) (Not Detectd) RSV (PCR) (Not Detectd) SARS-CoV-2 (PCR) (Not Detectd) 06/12/21 06/12/21 06/12/21 Range/Units 10:48 10:55 11:00 WBC (3.8-10.6) k/uL RBC (3.80-5.40) m/uL Hgb (11.4-16.0) gm/dL Hct (34.0-46.0) % MCV (80.0-100.0) fL MCH (25.0-35.0) pg MCHC (31.0-37.0) g/dL RDW (11.5-15.5) % Plt Count (150-450) k/uL MPV Neutrophils % % Lymphocytes % % Monocytes % % Eosinophils % % Basophils % % Neutrophils # (1.3-7.7) k/uL Lymphocytes # (1.0-4.8) k/uL Monocytes # (0-1.0) k/uL Eosinophils # (0-0.7) k/uL Basophils # (0-0.2) k/uL PT (9.0-12.0) sec INR (<1.2) APTT (22.0-30.0) sec Sodium (137-145) mmol/L Potassium (3.5-5.1) mmol/L Chloride (98-107) mmol/L Carbon Dioxide (22-30) mmol/L Anion Gap mmol/L BUN (7-17) mg/dL Creatinine (0.52-1.04) mg/dL Est GFR (CKD-EPI)AfAm (>60 ml/min/1.73 sqM) Est GFR (CKD-EPI)NonAf (>60 ml/min/1.73 sqM) Glucose (74-99) mg/dL Calcium (8.4-10.2) mg/dL Magnesium (1.6-2.3) mg/dL Total Bilirubin (0.2-1.3) mg/dL AST (14-36) U/L ALT (4-34) U/L Alkaline Phosphatase (38-126) U/L CK-MB (CK-2) 1.6 (0.0-2.4) ng/mL Troponin I <0.012 (0.000-0.034) ng/mL NT-Pro-B Natriuret Pep 42 pg/mL Total Protein (6.3-8.2) g/dL Albumin (3.5-5.0) g/dL Amylase (30-110) U/L Lipase (23-300) U/L Urine Color Urine Appearance (Clear) Urine pH (5.0-8.0) Ur Specific [place] (1.001-1.035) Urine Protein (Negative) Urine Glucose (UA) (Negative) Urine Ketones (Negative) Urine Blood (Negative) Urine Nitrite (Negative) Urine Bilirubin (Negative) Urine Urobilinogen (<2.0) mg/dL Ur Leukocyte Esterase (Negative) Urine RBC (0-5) /hpf Urine WBC (0-5) /hpf Ur Squamous Epith Cells (0-4) /hpf Urine Mucus (None) /hpf Influenza Type A (PCR) Not Detected (Not Detectd) Influenza Type B (PCR) Not Detected (Not Detectd) RSV (PCR) Not Detected (Not Detectd) SARS-CoV-2 (PCR) Not Detected (Not Detectd) 06/12/21 Range/Units 11:15 WBC (3.8-10.6) k/uL RBC (3.80-5.40) m/uL Hgb (11.4-16.0) gm/dL Hct (34.0-46.0) % MCV (80.0-100.0) fL MCH (25.0-35.0) pg MCHC (31.0-37.0) g/dL RDW (11.5-15.5) % Plt Count (150-450) k/uL MPV Neutrophils % % Lymphocytes % % Monocytes % % Eosinophils % % Basophils % % Neutrophils # (1.3-7.7) k/uL Lymphocytes # (1.0-4.8) k/uL Monocytes # (0-1.0) k/uL Eosinophils # (0-0.7) k/uL Basophils # (0-0.2) k/uL PT (9.0-12.0) sec INR (<1.2) APTT (22.0-30.0) sec Sodium (137-145) mmol/L Potassium (3.5-5.1) mmol/L Chloride (98-107) mmol/L Carbon Dioxide (22-30) mmol/L Anion Gap mmol/L BUN (7-17) mg/dL Creatinine (0.52-1.04) mg/dL Est GFR (CKD-EPI)AfAm (>60 ml/min/1.73 sqM) Est GFR (CKD-EPI)NonAf (>60 ml/min/1.73 sqM) Glucose (74-99) mg/dL Calcium (8.4-10.2) mg/dL Magnesium (1.6-2.3) mg/dL Total Bilirubin (0.2-1.3) mg/dL AST (14-36) U/L ALT (4-34) U/L Alkaline Phosphatase (38-126) U/L CK-MB (CK-2) (0.0-2.4) ng/mL Troponin I (0.000-0.034) ng/mL NT-Pro-B Natriuret Pep pg/mL Total Protein (6.3-8.2) g/dL Albumin (3.5-5.0) g/dL Amylase (30-110) U/L Lipase (23-300) U/L Urine Color Yellow Urine Appearance Clear (Clear) Urine pH 5.5 (5.0-8.0) Ur Specific [place] 1.009 (1.001-1.035) Urine Protein Negative (Negative) Urine Glucose (UA) Negative (Negative) Urine Ketones Negative (Negative) Urine Blood Small H (Negative) Urine Nitrite Negative (Negative) Urine Bilirubin Negative (Negative) Urine Urobilinogen <2.0 (<2.0) mg/dL Ur Leukocyte Esterase Negative (Negative) Urine RBC 2 (0-5) /hpf Urine WBC <1 (0-5) /hpf Ur Squamous Epith Cells 1 (0-4) /hpf Urine Mucus Rare H (None) /hpf Influenza Type A (PCR) (Not Detectd) Influenza Type B (PCR) (Not Detectd) RSV (PCR) (Not Detectd) SARS-CoV-2 (PCR) (Not Detectd) Interpretation: other (Right bundle branch block - present on EKG from 09/27/2016) Sinus rhythm, possible left atrial enlargement, right bundle branch block, ventricular rate of 86 bpm, OK interval 132 ms, QRS duration of 148 ms, QTC of 410 ms. 06/12/21 10:44 - Radiology Data Radiology results: report reviewed, image reviewed Disposition Clinical Impression: Diarrhea Disposition: HOME SELF-CARE Instructions (If sedation given, give patient instructions): Dehydration (ED), Gastroenteritis (ED), Acute Diarrhea (ED) Additional Instructions: Return to the emergency department if you develop any new, worsening, or conc erning symptoms. Continue to drink plenty of fluids and remain well-hydrated. Follow up with your primary care provider in 1 to 2 days. Is patient prescribed a controlled substance at d/c from ED?: No Referrals: Tomas Finn III, MD [Primary Care Provider] - 1-2 days
--- NOTE | 2021-06-12 11:09 | XR ---
EXAMINATION TYPE: XR chest 2V DATE OF EXAM: 06/12/2021 COMPARISON: Chest x-ray September 27, 2016 HISTORY: Chest pain. TECHNIQUE: Frontal and lateral views of the chest are obtained. FINDINGS: There is no suspicious focal air space opacity, pleural effusion, or pneumothorax seen. T he cardiac silhouette size is stable and within normal limits. The osseous structures are intact. IMPRESSION: No acute process. No significant change from prior.
[2021-06-12] MEDS ORDERED: SODIUM CHLORIDE 0.9% 1,000 ML IV ONE (11:17)
[2021-06-12 11:22] LABS: ALT 20 U/L (4-34); AST 23 U/L (14-36); African American GFR (CKD) >90 (>60 ml/min/1.73 sqM); Albumin 4.3 g/dL (3.5-5.0); Alkaline Phosphatase 74 U/L (38-126); Amylase 71 U/L (30-110); Anion Gap 9 mmol/L; Blood Urea Nitrogen 18 mg/dL (7-17); Calcium 9.2 mg/dL (8.4-10.2); Carbon Dioxide 25 mmol/L (22-30); Chloride 100 mmol/L (98-107); Glucose 105 mg/dL (74-99); Lipase 129 U/L (23-300); Magnesium 1.7 mg/dL (1.6-2.3); Non-African American GFR(CKD) >90 (>60 ml/min/1.73 sqM); Potassium 3.8 mmol/L (3.5-5.1); Sodium 134 mmol/L (137-145); Total Bilirubin 0.6 mg/dL (0.2-1.3); Total Protein 7.3 g/dL (6.3-8.2)
[2021-06-12 11:28] LABS: Basophils % (A) 0 %; Eosinophils # (A) 0.3 k/uL (0-0.7); Eosinophils % (A) 2 %; HCT 49.3 % (34.0-46.0); HGB 16.3 gm/dL (11.4-16.0); Lymphocytes # (A) 2.1 k/uL (1.0-4.8); Lymphocytes % (A) 18 %; MCH 30.4 pg (25.0-35.0); MCHC 33.1 g/dL (31.0-37.0); MCV 91.9 fL (80.0-100.0); Monocytes # (A) 0.8 k/uL (0-1.0); Monocytes % (A) 7 %; Neutrophils # (A) 8.3 k/uL (1.3-7.7); Neutrophils % (A) 71 %; Platelet Count 398 k/uL (150-450); RBC 5.37 m/uL (3.80-5.40); RDW 14.2 % (11.5-15.5); WBC 11.7 k/uL (3.8-10.6)
[2021-06-12 11:33] LABS: INR 1.8 (<1.2); Partial Thromboplastin Time 37.8 sec (22.0-30.0)
[2021-06-12 11:36] LABS: Creatine Kinase MB 1.6 ng/mL (0.0-2.4); Troponin I <0.012 ng/mL (0.000-0.034)
[2021-06-12 11:44] LABS: Appearance,Urine Clear (Clear); Bilirubin,Urine Negative (Negative); Blood,Urine Small (Negative); Color,Urine Yellow; Glucose,Urine (UA) Negative (Negative); Ketones,Urine Negative (Negative); Leukocyte Esterase,Urine Negative (Negative); Mucus,Urine Rare /hpf; Nitrite,Urine Negative (Negative); PH, Urine 5.5 (5.0-8.0); Protein,Urine Negative (Negative); RBC,Urine 2 /hpf (0-5); Specific Gravity,Urine 1.009 (1.001-1.035); Squamous Epithelial Cell,Urine 1 /hpf (0-4); Urobilinogen,Urine <2.0 mg/dL (<2.0); WBC,Urine <1 /hpf (0-5)
[2021-06-12 12:11] LABS: Influenza A Not Detected (Not Detectd); Influenza B Not Detected (Not Detectd)
[2021-06-12 12:48] VITALS: BP 120/79; PULSE 75; RESP 16
== END 2021-06-12 12:48 | disposition home or self-care (01) ==
LOC: EC 10:06
DX: R19.7 Diarrhea, unspecified (principal); J44.9 Chronic obstructive pulmonary disease, unspecified; F17.200 Nicotine dependence, unspecified, uncomplicated; Z20.822 Contact with and (suspected) exposure to COVID-19; Z90.49 Acquired absence of other specified parts of digestive tract
CPT/HCPCS: 36415; 71046; 80053; 81001; 82150; 82553; 83690; 83735; 83880; 84484; 85025; 85610; 85730; 87636; 93005; 96360; 99285

== ENCOUNTER → 2022-02-15 | Outpatient (CLI) | payer BC ==
--- NOTE | 2022-02-16 18:26 | MM ---
Reason for Exam: Screening (asymptomatic). Last mammogram was performed 1 year(s) and 1 month(s) ago. Patient History: Menarche at age 12. First Full-Term at age 16. Right ovary removed at age 19. Postmenopausal. Patient used Hormonal Contraceptives for 6 years. 2009, Benign Stereotactic Core Biopsy on the left side. Maternal cousin had breast cancer. Maternal aunt had breast cancer, age 63. Mother had breast cancer, age 77. Risk Values: Deborah 5 year model risk: 3.3%. NCI Lifetime model risk: 15.0%. Prior Study Comparison: 11/04/2018 Bilateral Screening Mammogram, [facility]. 12/25/2019 Bilateral Screening Mammogram, [facility]. 02/14/2021 Bilateral Screening Mammogram, [facility]. Tissue Density: There are scattered fibroglandular densities. Findings: Analyzed By CAD. Chronic nodularity posterior upper outer quadrant left breast. Microclip central posterior left breast from prior biopsy. No significant change from prior exams. Overall Assessment: Benign, BI-RAD 2 Management: Screening Mammogram of both breasts in 1 year. 1. Per NCCN guidelines, a 5 year risk of 1.67 above the general population may qualify the patient for risk reduction therapy. Consider specialist referral for further assessment. 2. Patient should continue monthly self breast exams. 3. This exam should not preclude additional follow-up of suspicious palpable abnormalities. Electronically signed and approved by: Josh Torres M.D. Radiologist
== END | disposition home or self-care (01) ==
LOC: RADMAMWWP 14:50
PROVIDERS: ATTEND Family Medicine
DX: Z12.31 Encounter for screening mammogram for malignant neoplasm of breast (principal); Z78.0 Asymptomatic menopausal state; Z80.3 Family history of malignant neoplasm of breast; Z90.721 Acquired absence of ovaries, unilateral
CPT/HCPCS: 77067

== ENCOUNTER → 2023-01-14 | Outpatient (CLI) | payer BC ==
--- NOTE | 2023-01-14 09:55 | XR ---
EXAMINATION TYPE: XR Hip Bilateral Complete DATE OF EXAM: 01/14/2023 9:09 AM CLINICAL INDICATION:Female, 62 years old with history of M19.90 osteoarthritis; [facility] COMPARISON: None. TECHNIQUE: XR Hip Bilateral Complete; hip was examined in the frontal and lateral projections and a A P pelvis. FINDINGS: No evidence for acute process, joint dislocation or significant soft tissue swelling. Osteo phyte formation of the superior acetabulum of the hip and mild joint space narrowing. IMPRESSION: 1. No evidence for acute process. 2. Mild mild to moderate osteoarthrosis.
== END | disposition home or self-care (01) ==
LOC: RADXRMAIN 08:55
PROVIDERS: ATTEND Family Medicine
DX: M16.0 Bilateral primary osteoarthritis of hip (principal)
CPT/HCPCS: 73521

== ENCOUNTER → 2023-02-11 | Outpatient (CLI) | payer BC ==
--- NOTE | 2023-02-12 12:26 | CA ---
Transthoracic Echo Report Name: Elenita Menjivar Age: 62 Gender: F : 1960 Exam Date: 02/11/2023 15:24 Exam Location: [place] [facility] Ht (in): 62 Wt (lb): 158 Ordering Physician: Tres Kohler MD Attending/Referring Phys: [id number], Jose F [employer] Sun Juárez, [facility] Procedure CPT: Indications: I10 Essential Hypertension Cardiac Hx: Technical Quality: Fair Contrast 1: Total Dose (mL): Contrast 2: Total Dose (mL): MEASUREMENTS (Male / Female) Normal Values 2D ECHO LV Diastolic Diameter PLAX 4.1 cm 4.2 - 5.9 / 3.9 - 5.3 cm LV Systolic Diameter PLAX 2.6 cm IVS Diastolic Thickness 0.9 cm 0.6 - 1.0 / 0.6 - 0.9 cm LVPW Diastolic Thickness 1.1 cm 0.6 - 1.0 / 0.6 - 0.9 cm LV Relative Wall Thickness 0.5 RV Internal Dim ED PLAX 2.2 cm LA Systolic Diameter LX 3.0 cm 3.0 - 4.0 / 2.7 - 3.8 cm LV Diastolic Volume MOD 4C 84.7 cm??? LV Systolic Volume MOD 4C 33.7 cm??? LV Ejection Fraction MOD 4C 60.3 % LV Cardiac Index MOD 4C 2618.1 cm???/min???m??? LV Diastolic Length 4C 6.6 cm LV Systolic Length 4C 5.6 cm LV Diastolic Volume MOD 2C 40.8 cm??? LV Systolic Volume MOD 2C 19.9 cm??? LV Ejection Fraction MOD 2C 51.2 % LV Cardiac Index MOD 2C 1070.7 cm???/min???m??? LV Diastolic Length 2C 6.8 cm LV Systolic Length 2C 5.5 cm LA Volume 43.6 cm??? 18 - 58 / 22 - 52 cm??? LA Volume Index 24.3 cm???/m??? 16 - 28 cm???/m??? M-MODE Aortic Root Diameter MM 2.8 cm MV E Point Septal Separation 0.4 cm AV Cusp Separation MM 1.9 cm DOPPLER AV Peak Velocity 155.1 cm/s AV Peak Gradient 9.6 mmHg MV Area PHT 3.4 cm??? Mitral E Point Velocity 74.5 cm/s Mitral A Point Velocity 91.7 cm/s Mitral E to A Ratio 0.8 MV Deceleration Time 220.2 ms MV E' Velocity 5.6 cm/s Mitral E to MV E' Ratio 13.2 FINDINGS Left Ventricle Left ventricular ejection fraction is estimated at 50-55 %. Left ventricular cavity size normal. Mildly increased posterior wall thickness. Right Ventricle Normal right ventricular size. Right Atrium Normal right atrial size. Left Atrium Normal left atrial size. Mitral Valve Structurally normal mitral valve. Mitral annular calcification. No mitral stenosis, regurgitation or prolapse. Aortic Valve Trileaflet aortic valve. No aortic valve stenosis or regurgitation. Tricuspid Valve Structurally normal tricuspid valve. No tricuspid stenosis, regurgitation or prolapse. Pulmonic Valve Structurally normal pulmonic valve. Trace pulmonic regurgitation. Pericardium No pericardial effusion. Aorta Normal size aortic root and proximal ascending aorta. CONCLUSIONS Normal LV function Previewed by: Dr. Chito Herring MD (Electronically Signed) Final Date: 12 February 2023 12:25
== END | disposition home or self-care (01) ==
LOC: RADECHMAIN 15:08
PROVIDERS: ATTEND Family Medicine
DX: I10 Essential (primary) hypertension (principal)
CPT/HCPCS: 93306

== ENCOUNTER → 2023-07-12 | Outpatient (CLI) | payer MEDICARE ==
--- NOTE | 2023-07-15 08:35 | MM ---
Reason for Exam: Screening (asymptomatic). Last mammogram was performed 1 year(s) and 4 month(s) ago. Patient History: Menarche at age 12. First Full-Term at age 16. Right ovary removed at age 19. Postmenopausal. Patient used Hormonal Contraceptives for 6 years. 2010, Benign Stereotactic Core Biopsy on the left side. Maternal cousin had breast cancer. Maternal aunt had breast cancer, age 63. Mother had breast cancer, age 77. Risk Values: Deborah 5 year model risk: 3.4%. NCI Lifetime model risk: 14.6%. Prior Study Comparison: 12/25/2019 Bilateral Screening Mammogram, [facility]. 02/14/2021 Bilateral Screening Mammogram, [facility]. 02/15/2022 Bilateral MG screening mammo w CAD, [facility]. Tissue Density: The breasts are almost entirely fatty. Findings: Analyzed By CAD. Right breast: There is no suspicious group of microcalcifications or new suspicious mass. Benign-appearing calcifications right breast. Left breast: There is no suspicious group of microcalcifications or new suspicious mass. Benign-appearing calcifications right breast. Overall Assessment: Benign, BI-RAD 2 Management: Screening Mammogram of both breasts in [address] [facility] will attempt to contact patient to return for supplemental views and ultrasound if indicated. Patient should continue monthly self-breast exams. A clinical breast exam by your physician is recommended on an annual basis. This exam should not preclude additional follow-up of suspicious palpable abnormalities. Note on Deborah scores and lifetime risk: 1. A Deborah score greater than 3% is considered moderate risk. If this is the case, consider specialist referral to assess eligibility for a risk reducing agent. 2. If overall lifetime risk for the development of breast cancer is 20% or higher, the patient may qualify for future screening with alternating mammogram and breast MRI. Electronically signed and approved by: Jose Grimm DO
--- NOTE | 2023-07-18 11:57 | BD ---
EXAMINATION TYPE: Axial Bone Density DATE OF EXAM: 07/12/2023 CLINICAL HISTORY: 62 years old Female. ICD-10 CODE: Z78.0 [place] Height: 59.5 Weight: 164 FRAX RISK QUESTIONS: Family History (Parent hip fracture): yes Glucocorticoids (More than 3mos): yes, for asthma and copd, (Ex: prednisone, prednisolone, methylprednisolone, dexamethasone, and hydrocortisone). 3. Menopause before 45: no about 56 yrs old Current Tobacco Use: yes RISK FACTORS HISTORY OF: osteo arthritis, MEDICATIONS: bp med, vit d, steroids for lungs EXAM MEASUREMENTS: Bone mineral densitometry was performed using the [employer] System. Bone mineral density as measured about the Lumbar spine is: ----- L1-L4(G/cm2): 1.647 T Score Values are as follows: ----- L1: 1.4 ----- L2: 3.2 ----- L3: 6.1 ----- L4: 4.4 ----- L1-L4: 3.9 Z Score Values are as follows: ----- L1: 2.5 ----- L2: 4.3 ----- L3: 7.2 ----- L4: 5.5 ----- L1-L4: 5.0 Bone mineral density is her baseline study, first dexa scan. Bone mineral density about the R hip (g/cm2): 1.209 Bone mineral density about the L hip (g/cm2): 1.290 T Score values are as follows: -----R Neck: 0.6 -----L Neck: 1.3 -----R Total: 1.6 -----L Total: 2.2 Z Score values are as follows: -----R Neck: 1.7 -----L Neck: 2.5 -----R Total: 2.4 -----L Total: 3.1 Bone mineral density is her first bone density test, baseline study. FRAX%s: The graph provided illustrates a 17.2% chance for a major osteoporotic fx and a 0.3% chance f or the hips probability for fx in 10 years time. IMPRESSION: Normal (Values between +1 and -1 indicate normal bone mass). Consider repeating this study in 5 year s or sooner if there is some new clinical indication. NOTE: T-SCORE=SD OF THE YOUNG ADULT MEAN.
== END | disposition home or self-care (01) ==
LOC: RADMAMWWP 10:09
PROVIDERS: ATTEND Family Medicine
DX: Z12.31 Encounter for screening mammogram for malignant neoplasm of breast (principal); Z78.0 Asymptomatic menopausal state; Z80.3 Family history of malignant neoplasm of breast
CPT/HCPCS: 77067; 77080